=== PATIENT | female | born 1950 | race Caucasian/White ===

== ENCOUNTER 2021-04-11 06:40 | Observation (INO) ==
[~2021-04-11 06:40] MED LIST: Polymyxin B Sulfate 500,000 UNIT, Sodium Chloride IRRigation 1,000 ML IR ONE
[2021-04-11] MEDS ORDERED: Famotidine 20 MG/2 ML VIAL IVP ONE (07:00)
[2021-04-11] MEDS ORDERED: Acetaminophen IV 1,000 MG/100 ML BAG IVPB ONE (07:01)
[2021-04-11] MEDS ORDERED: *HR* Methadone 5 MG TABLET PO ONE (07:15)
[2021-04-11] MEDS ORDERED: CeFAZolin Syr 2,000MG/20 ML 2,000 MG/20 ML SYRINGE IVPB ONE (07:17)
[2021-04-11] MEDS ORDERED: *HR* Propofol 200 MG/20 ML VIAL IVP ONE (07:23)
[2021-04-11] MEDS ORDERED: *HR* FentaNYL (PF) 100 MCG/2 ML VIAL ONE ×2 (07:23→10:54)
[2021-04-11] MEDS ORDERED: Albumin Human 5% 0 GM/0 ML IV.SOLN ONE (07:28)
[2021-04-11] MEDS ORDERED: *HR* Vasopressin 20 UNIT/ML VIAL ONE (07:28)
[2021-04-11] MEDS ORDERED: Ringers Solution, Lactated 1,000 ML IVC SCH (07:30)
[2021-04-11] MEDS ORDERED: EPHEDrine 50 MG/ML VIAL ONE (07:31)
[2021-04-11] MEDS ORDERED: Lidocaine -MPF 2% 5 ML VIAL ONE (07:35)
[2021-04-11] MEDS ORDERED: *HR* Rocuronium Bromide 50 MG/5 ML VIAL ONE (07:35)
[2021-04-11] MEDS ORDERED: Ondansetron 4 MG/2 ML VIAL ONE (07:35)
[2021-04-11] MEDS ORDERED: Lidocaine HCL 4 ML Topical Solution (Laryng-O-Jet Kit Sterile Pak) TP ONE (07:35)
[2021-04-11] MEDS ORDERED: *HR* Succinylcholine 200 MG/10 ML VIAL IVP ONE (07:35)
[2021-04-11] MEDS ORDERED: *HR* Remifentanil 1 MG VIAL IVP ONE ×2 (07:36→09:39)
[2021-04-11] MEDS ORDERED: *HR* Phenylephrine 10 MG/ML VIAL ONE (07:38)
[2021-04-11] MEDS ORDERED: Vancomycin 1,000 MG VIAL ONE (07:46)
[2021-04-11] MEDS ORDERED: *HR* Labetalol 20 MG/4 ML SYRINGE IVP ONE (09:14)
[2021-04-11] MEDS ORDERED: Sugammadex Sodium 200 MG/2 ML VIAL IV ONE (09:39)
[2021-04-11] MEDS ORDERED: Naloxone 0.4 MG/ML INJ IVP PRN (14:36)
[2021-04-11] MEDS: *HR* OxyCODONE Immed Rel 5 MG TABLET PO PRN (16:46)
[2021-04-11] MEDS: CeFAZolin 2 GM/120 ML BAG IVPB SCH ×2 (16:53→23:09)
[2021-04-11] MEDS: *HR* Metformin 500 MG TABLET PO SCH (20:26)
[2021-04-11] MEDS: *HR* HYDROcodone/Acet 5/325 mg TABLET PO PRN (20:51)
[2021-04-12] MEDS ORDERED: Ondansetron 4 MG/2 ML VIAL IVP PRN (00:31)
[2021-04-12] MEDS ORDERED: *HR* Promethazine 25 MG/ML VIAL IM PRN (00:32)
[2021-04-12] MEDS: Ringers Solution, Lactated 1,000 ML IVC SCH ×3 (00:46→08:50)
[2021-04-12] MEDS: *HR* OxyCODONE Immed Rel 5 MG TABLET PO PRN ×3 (02:21→19:22)
[2021-04-12] MEDS: *HR* HYDROcodone/Acet 5/325 mg TABLET PO PRN (04:53)
[2021-04-12] MEDS: Torsemide 20 MG TABLET PO SCH (08:48)
[2021-04-12] MEDS: FLUoxetine 20 MG CAPSULE PO SCH (08:49)
[2021-04-12] MEDS: *HR* Metformin 500 MG TABLET PO SCH ×2 (08:50→19:23)
[2021-04-12] MEDS: Gabapentin 300 MG CAPSULE PO SCH ×3 (15:38→19:22)
[2021-04-13] MEDS: *HR* OxyCODONE Immed Rel 5 MG TABLET PO PRN ×3 (00:16→14:21)
[2021-04-13] MEDS: *HR* Metformin 500 MG TABLET PO SCH ×2 (09:23→18:18)
[2021-04-13] MEDS: FLUoxetine 20 MG CAPSULE PO SCH (09:23)
[2021-04-13] MEDS: Gabapentin 300 MG CAPSULE PO SCH ×3 (09:23→20:18)
[2021-04-13] MEDS: Torsemide 20 MG TABLET PO SCH (09:23)
[2021-04-13] MEDS: *HR* HYDROcodone/Acet 5/325 mg TABLET PO PRN (19:32)
[2021-04-13] MEDS: Acetaminophen 325 MG TABLET PO PRN (20:18)
[2021-04-14] MEDS: *HR* OxyCODONE Immed Rel 5 MG TABLET PO PRN ×3 (03:13→20:43)
[2021-04-14] MEDS: *HR* Metformin 500 MG TABLET PO SCH ×2 (07:38→17:11)
[2021-04-14] MEDS: Torsemide 20 MG TABLET PO SCH (07:39)
[2021-04-14] MEDS: Acetaminophen 325 MG TABLET PO PRN (07:39)
[2021-04-14] MEDS: FLUoxetine 20 MG CAPSULE PO SCH (07:39)
[2021-04-14] MEDS: Gabapentin 300 MG CAPSULE PO SCH ×3 (07:44→20:44)
[2021-04-14] MEDS: diazePAM 5 MG TABLET PO PRN ×2 (09:17→17:11)
[2021-04-14] MEDS: *HR* HYDROcodone/Acet 5/325 mg TABLET PO PRN (13:51)
[2021-04-15] MEDS: diazePAM 5 MG TABLET PO PRN ×2 (02:47→17:22)
[2021-04-15] MEDS: *HR* OxyCODONE Immed Rel 5 MG TABLET PO PRN ×2 (07:45→15:44)
[2021-04-15] MEDS: FLUoxetine 20 MG CAPSULE PO SCH (07:45)
[2021-04-15] MEDS: Acetaminophen 325 MG TABLET PO PRN ×2 (07:46→15:44)
[2021-04-15] MEDS: Gabapentin 300 MG CAPSULE PO SCH ×3 (07:46→21:49)
[2021-04-15] MEDS: *HR* Metformin 500 MG TABLET PO SCH ×2 (07:46→17:22)
[2021-04-15] MEDS: Torsemide 20 MG TABLET PO SCH (07:46)
[2021-04-15] MEDS: *HR* HYDROcodone/Acet 5/325 mg TABLET PO PRN (21:49)
[2021-04-16] MEDS: *HR* OxyCODONE Immed Rel 5 MG TABLET PO PRN ×4 (04:18→22:46)
[2021-04-16] MEDS: Acetaminophen 325 MG TABLET PO PRN ×2 (07:46→15:28)
[2021-04-16] MEDS: Torsemide 20 MG TABLET PO SCH (07:46)
[2021-04-16] MEDS: FLUoxetine 20 MG CAPSULE PO SCH (07:46)
[2021-04-16] MEDS: diazePAM 5 MG TABLET PO PRN (07:46)
[2021-04-16] MEDS: *HR* Metformin 500 MG TABLET PO SCH ×2 (07:46→17:06)
[2021-04-16] MEDS: Gabapentin 300 MG CAPSULE PO SCH ×3 (07:46→21:51)
[2021-04-17] MEDS: *HR* OxyCODONE Immed Rel 5 MG TABLET PO PRN ×3 (05:50→22:49)
[2021-04-17] MEDS: Torsemide 20 MG TABLET PO SCH (08:24)
[2021-04-17] MEDS: FLUoxetine 20 MG CAPSULE PO SCH (08:25)
[2021-04-17] MEDS: diazePAM 5 MG TABLET PO PRN (08:25)
[2021-04-17] MEDS: *HR* Metformin 500 MG TABLET PO SCH ×2 (08:26→16:57)
[2021-04-17] MEDS: Gabapentin 300 MG CAPSULE PO SCH ×3 (08:26→20:55)
[2021-04-17 12:03] LABS: Bilirubin,Urine Negative (Negative); Blood,Urine Negative (Negative); Clarity,Urine Clear (Clear); Color,Urine Colorless (Yellow); Glucose,Urine (UA) Normal (Normal); Ketones,Urine Negative (Negative); Leukocyte Esterase,Urine Negative (Negative); Nitrite,Urine Negative (Negative); Protein,Urine Negative (Neg-Trace); Specific Gravity,Urine 1.008 (1.010-1.025); Urobilinogen,Urine Normal (Normal)
[2021-04-17] MEDS: *HR* HYDROcodone/Acet 5/325 mg TABLET PO PRN (17:00)
[2021-04-18] MEDS: *HR* HYDROcodone/Acet 5/325 mg TABLET PO PRN (01:52)
[2021-04-18] MEDS: *HR* OxyCODONE Immed Rel 5 MG TABLET PO PRN ×2 (05:00→17:24)
[2021-04-18] MEDS: Ringers Solution, Lactated 1,000 ML IVC SCH ×2 (07:23→07:24)
[2021-04-18] MEDS: FLUoxetine 20 MG CAPSULE PO SCH (08:53)
[2021-04-18] MEDS: *HR* Metformin 500 MG TABLET PO SCH ×2 (08:53→17:05)
[2021-04-18] MEDS: Gabapentin 300 MG CAPSULE PO SCH ×2 (08:53→17:05)
[2021-04-18] MEDS: Torsemide 20 MG TABLET PO SCH (08:53)
[2021-04-18 12:15] VITALS: TEMP 98.4
[2021-04-18 16:43] VITALS: BP 119/73; PULSE 78; O2SAT 95
[2021-04-18 19:51] LABS: Influenza A PCR Negative (Negative); Influenza B PCR Negative (Negative); Resp. Syncytial Virus PCR Negative (Negative)
[2021-04-18 19:54] LABS: SARS-CoV-2 by PCR (In House) Negative (Negative)
== END 2021-04-18 20:00 ==
LOC: SDCAOSI 06:40 → 4WAOSI 06:40
PROVIDERS: ADMIT Orthopaedic Surgery Orthopaedic Surgery of the Spine; ATTEND Orthopaedic Surgery Orthopaedic Surgery of the Spine